=== PATIENT | female | born 1975 | race Caucasian/White ===

== ENCOUNTER 2021-12-13 02:21 | Emergency (ER) | payer SELFPAY ==
[~2021-12-13] VITALS: Ht 162.6 cm; Wt 95.5 kg
[2021-12-13] MEDS ORDERED: LEVO100T54 PO (02:31)
[2021-12-13] MEDS ORDERED: ZOLO100T PO (02:32)
[2021-12-13 04:14] VITALS: BP 127/54
== END 2021-12-13 04:29 | disposition left against medical advice (07) ==
LOC: M ED 02:21
DX: Z53.29 Procedure and treatment not carried out because of patient's decision for other reasons (principal)

== ENCOUNTER 2022-10-23 12:32 | Emergency (ER) | payer BC, OTHER, SELFPAY ==
[~2022-10-23] VITALS: Ht 162.6 cm; Wt 114.3 kg
[~2022-10-23 12:32] MED LIST: LEVO100T54 PO; ZOLO100T PO
[2022-10-23] MEDS ORDERED: FERR325T19 (12:49)
[2022-10-23] MEDS ORDERED: VITMTA PO (12:49)
[2022-10-23] MEDS ORDERED: OMEP40CA5 (12:49)
[2022-10-23] MEDS ORDERED: TRAZ-189 (12:49)
[2022-10-23] MEDS ORDERED: ONDA4TAB6 (12:49)
[2022-10-23] MEDS ORDERED: B-12100010 PO (12:49)
[2022-10-23 14:07] LABS: BASO % 0.3 % (0.0-1.0); EOS # 0.1 10^3/uL (0.0-0.5); EOS % 1.4 % (0.0-3.0); HEMATOCRIT 36.5 % (36.0-47.0); HEMOGLOBIN 12.2 g/dl (12.0-15.5); LYMPH # 1.9 10^3/uL (1.5-5.0); LYMPH % 26.3 % (24.0-44.0); MEAN CORPUSCULAR HEMOGLOBIN 30.4 pg (27.0-33.0); MEAN CORPUSCULAR HGB CONC 33.4 g/dl (32.0-36.5); MONO # 0.5 10^3/uL (0.0-0.8); NEUTROPHILS # 4.6 10^3/uL (1.5-8.5); NEUTROPHILS % 64.7 % (36.0-66.0); PLATELET COUNT, AUTOMATED 370 10^3/uL (150-450); RED BLOOD COUNT 4.01 10^6/uL (4.00-5.40); WHITE BLOOD COUNT 7.1 10^3/uL (4.0-10.0)
[2022-10-23] MEDS ORDERED: ONDANSETRON 4MG 2ML VIAL IV ONE (14:30)
[2022-10-23] MEDS ORDERED: MORPHINE 2 MG/ML 1ML VIAL IV ONE (14:30)
[2022-10-23 14:35] LABS: ALBUMIN 3.3 G/DL (3.2-5.2); BILIRUBIN,DIRECT 0.1 MG/DL (<0.4); BILIRUBIN,TOTAL 0.3 MG/DL (0.3-1.2); TOTAL PROTEIN 6.9 G/DL (5.7-8.2)
[2022-10-23] MEDS ORDERED: NS 1,000 ML IV ONE (14:40)
[2022-10-23] MEDS: GASTROGRAFIN SOLUTION 30ML PO SCH ×2 (15:13→15:42)
[2022-10-23] MEDS ORDERED: ISOVUE-370 76% 100ML VIAL As Ordered ONE (16:23)
[2022-10-23 17:36] VITALS: BP 134/72
== END 2022-10-23 17:39 | disposition home or self-care (01) ==
LOC: M ED 12:32
DX: G89.18 Other acute postprocedural pain (principal); M32.9 Systemic lupus erythematosus, unspecified; E03.9 Hypothyroidism, unspecified; Z98.84 Bariatric surgery status; Z88.6 Allergy status to analgesic agent; Z79.899 Other long term (current) drug therapy
CPT/HCPCS: 74021; 74177; 76705; 80047; 80076; 83690; 84702; 85025; 96374; 96375; 99284; J2405; Q9963; Q9967

== ENCOUNTER 2022-11-04 06:51 | Emergency (ER) | payer OTHER ==
[~2022-11-04] VITALS: Ht 162.6 cm; Wt 111.1 kg
[~2022-11-04 06:51] MED LIST changes: +B-12100010 PO; +FERR325T19; +OMEP40CA5; +ONDA4TAB6; +TRAZ-189; +VITMTA PO
[2022-11-04 07:43] LABS: BASO % 0.2 % (0.0-1.0); EOS % 0.3 % (0.0-3.0); HEMATOCRIT 37.4 % (36.0-47.0); HEMOGLOBIN 12.6 g/dl (12.0-15.5); LYMPH # 1.1 10^3/uL (1.5-5.0); LYMPH % 11.2 % (24.0-44.0); MEAN CORPUSCULAR HGB CONC 33.7 g/dl (32.0-36.5); MEAN CORPUSCULAR VOLUME 92.1 fl (80.0-96.0); MONO # 0.5 10^3/uL (0.0-0.8); NEUTROPHILS # 8.5 10^3/uL (1.5-8.5); PLATELET COUNT, AUTOMATED 296 10^3/uL (150-450); RED BLOOD COUNT 4.06 10^6/uL (4.00-5.40); WHITE BLOOD COUNT 10.2 10^3/uL (4.0-10.0)
[2022-11-04 08:07] LABS: LIPASE 25 U/L (12-53)
[2022-11-04 08:21] LABS: ALBUMIN 3.5 G/DL (3.2-5.2); ALKALINE PHOSPHATASE 82 U/L (46-116); ALT/SGPT 54 U/L (7.0-40); AST/SGOT 34 U/L (<34); BILIRUBIN,DIRECT 0.2 MG/DL (<0.4); BILIRUBIN,TOTAL 0.4 MG/DL (0.3-1.2); BLOOD UREA NITROGEN 9 MG/DL (9-23); CALCIUM LEVEL 8.5 MG/DL (8.5-10.1); CARBON DIOXIDE LEVEL 23 MMOL/L (20-31); CHLORIDE LEVEL 104 MMOL/L (98-107); CREATININE FOR GFR 0.63 MG/DL (0.55-1.30); GLOMERULAR FILTRATION RATE > 60.0 (>58); GLUCOSE, FASTING 154 MG/DL (60-100); SODIUM LEVEL 140 MMOL/L (136-145); TOTAL PROTEIN 6.9 G/DL (5.7-8.2)
[2022-11-04] MEDS ORDERED: ONDANSETRON 4MG 2ML VIAL IV ONE (09:45)
[2022-11-04] MEDS ORDERED: MORPHINE 4 MG/ML 1ML VIAL IV ONE (09:45)
[2022-11-04] MEDS ORDERED: ISOVUE-370 76% 100ML VIAL As Ordered ONE (09:50)
[2022-11-04] MEDS ORDERED: KETOROLAC 30 MG/ML 1ML VIAL IV ONE (13:15)
[2022-11-04 14:24] VITALS: BP 126/77
== END 2022-11-04 14:29 | disposition home or self-care (01) ==
LOC: M ED 06:51
DX: R10.2 Pelvic and perineal pain (principal); E03.9 Hypothyroidism, unspecified; Z98.84 Bariatric surgery status; Z88.6 Allergy status to analgesic agent; Z79.899 Other long term (current) drug therapy
CPT/HCPCS: 74177; 76830; 76856; 80048; 80076; 81001; 83690; 84702; 85025; 96374; 96375; 99284; J1885; J2405; Q9967

== ENCOUNTER → 2024-01-04 | Outpatient (CLI) | payer OTHER ==
[~2024-01-04] MED LIST changes: +APPL300T4 PO; +BIOT1TAB PO; +ERGO500029 PO; +MULTTAB61 PO; +ONDA-282; -ONDA4TAB6; +OYST500C PO; +TRAZ-257 PO
[2024-01-04 15:59] LABS: HEMATOCRIT 34.6 % (36.0-47.0); HEMOGLOBIN 11.5 g/dl (12.0-15.5); MEAN CORPUSCULAR HEMOGLOBIN 32.7 pg (27.0-33.0); MEAN CORPUSCULAR HGB CONC 33.2 g/dl (32.0-36.5); MEAN CORPUSCULAR VOLUME 98.3 fl (80.0-96.0); PLATELET COUNT, AUTOMATED 272 10^3/uL (150-450); RED BLOOD COUNT 3.52 10^6/uL (4.00-5.40); WHITE BLOOD COUNT 5.1 10^3/uL (4.0-10.0)
[2024-01-04 16:32] LABS: BLOOD UREA NITROGEN 14 MG/DL (9-23); CALCIUM LEVEL 8.7 MG/DL (8.5-10.1); CARBON DIOXIDE LEVEL 27 MMOL/L (20-31); CHLORIDE LEVEL 107 MMOL/L (98-107); GLOMERULAR FILTRATION RATE > 60.0 (>58); GLUCOSE, FASTING 82 MG/DL (60-100); POTASSIUM SERUM 3.7 MMOL/L (3.5-5.1); SODIUM LEVEL 139 MMOL/L (136-145)
== END ==
LOC: M RAD 13:49
PROVIDERS: ATTEND Nurse Practitioner Adult Health
DX: Z01.810 Encounter for preprocedural cardiovascular examination (principal); Z01.812 Encounter for preprocedural laboratory examination; R00.1 Bradycardia, unspecified

== ENCOUNTER 2024-01-09 07:23 | Observation (INO) | payer OTHER ==
[~2024-01-09] VITALS: Ht 162.6 cm; Wt 58.8 kg
[~2024-01-09 07:23] MED LIST changes: -APPL300T4 PO; -BIOT1TAB PO; -ERGO500029 PO; -MULTTAB61 PO; -OYST500C PO
[2024-01-09] MEDS ORDERED: LR 1,000 ML IV SCH (07:45)
[2024-01-09] MEDS ORDERED: ONDANSETRON 4MG 2ML VIAL As Ordered ONE (08:22)
[2024-01-09] MEDS ORDERED: fentaNYL 250 MCG/5 ML INJECTION As Ordered ONE (08:22)
[2024-01-09] MEDS ORDERED: LIDOCAINE 2% 100MG/5ML SDV (FOR ANES.) As Ordered ONE (08:22)
[2024-01-09] MEDS ORDERED: MIDAZOLAM INJ 2MG/2ML VIAL As Ordered ONE (08:22)
[2024-01-09] MEDS ORDERED: SUGAMMADEX SODIUM 500 MG/5 ML VIAL (BRIDION) As Ordered ONE (08:22)
[2024-01-09] MEDS ORDERED: propofoL 200 MG/20 ML VIAL As Ordered ONE (08:22)
[2024-01-09] MEDS ORDERED: LACRILUBE (AKWA TEARS) OPHTH OINT 3.5GM As Ordered ONE (08:22)
[2024-01-09] MEDS ORDERED: ROCURONIUM BROMIDE 50MG/5ML VIAL As Ordered ONE (08:22)
[2024-01-09] MEDS ORDERED: dexmedeTOMIDine (4MCG/ML)200MCG/50ML BTL (PRECEDEX) As Ordered ONE (08:23)
[2024-01-09] MEDS ORDERED: OYST500C PO ×2 (08:37)
[2024-01-09] MEDS ORDERED: ERGO500029 PO (08:37)
[2024-01-09] MEDS ORDERED: MULTTAB61 PO (08:37)
[2024-01-09] MEDS ORDERED: APPL300T4 PO (08:40)
[2024-01-09] MEDS ORDERED: BIOT1TAB PO (08:40)
[2024-01-09] MEDS ORDERED: HOME MED LIST COMPLETE! XX SCH (08:45)
[2024-01-09] MEDS: ceFAZolin SOD 2 GM in IV 1 EA IV ONE (10:30)
[2024-01-09] MEDS: HEPARIN SOD (PORCINE) 5000UNITS/ML 1ML VIAL/SYRINGE SQ ONE (10:30)
[2024-01-09] MEDS ORDERED: ePHEDrine SULFATE 25 MG/5 ML(5MG/ML) SYRINGE As Ordered ONE (10:40)
[2024-01-09] MEDS ORDERED: ACETAMINOPHEN 1000MG 100ML IV BAG As Ordered ONE (10:47)
[2024-01-09] MEDS ORDERED: HYDROmorphone HCL 2MG/ML 1ML VIAL As Ordered ONE (11:24)
[2024-01-09] MEDS: GENTAMICIN SULF 80MG/2ML VIAL As Ordered ONE (11:56)
[2024-01-09] MEDS ORDERED: METOCLOPRAMIDE INJ 10MG/2ML VIAL As Ordered ONE (12:37)
[2024-01-09] MEDS ORDERED: oxyCODONE 5MG TAB PO PRN (12:55)
[2024-01-09] MEDS: LR 1,000 ML IV SCH ×2 (12:55→15:29)
[2024-01-09] MEDS ORDERED: ONDANSETRON 4MG 2ML VIAL IV PRN ×2 (12:55→13:50)
[2024-01-09] MEDS ORDERED: fentaNYL 100 MCG/2 ML INJECTION IV PRN (12:55)
[2024-01-09] MEDS ORDERED: HYDROMORPHONE HCL 0.5 MG/ 0.5 ML SYRINGE IV PRN (12:55)
[2024-01-09] MEDS ORDERED: PERCOCET 5MG/325MG TAB PO PRN (13:50)
[2024-01-09 15:30] VITALS: BP 118/67; TEMP 97.9; O2SAT 98
[2024-01-09 16:00] VITALS: BP_SYST 111; BP_SYST 118; BP_DIAS 60; BP_DIAS 69; TEMP 97.9; TEMP 98.6; O2SAT 97
[2024-01-09] MEDS: ACETAMINOPHEN TAB 650MG DOSE (2X325MG) PO PRN (16:43)
[2024-01-09 17:31] VITALS: BP 114/69; TEMP 98.8; O2SAT 98
[2024-01-09 18:30] VITALS: BP 115/72; TEMP 98.2; O2SAT 96
[2024-01-09] MEDS: traMADol 50 MG TAB PO PRN (19:29)
[2024-01-09] MEDS: ceFAZolin SOD 2 GM in IV 1 EA IV SCH (20:03)
[2024-01-09 20:50] VITALS: BP 114/73; TEMP 98.1; O2SAT 97
[2024-01-09 23:24] VITALS: BP 125/69; TEMP 97.9; O2SAT 97
[2024-01-10 05:03] VITALS: BP 121/69; TEMP 98.2; O2SAT 96
[2024-01-10] MEDS: LEVOTHYROXINE 100MCG TABLET (0.1MG) PO SCH (06:22)
[2024-01-10 08:00] VITALS: BP 148/91; TEMP 97.6; O2SAT 97
[2024-01-10] MEDS ORDERED: TRAM50TA2 PO (09:43)
== END 2024-01-10 12:05 | disposition home or self-care (01) ==
LOC: M SDC 07:23 → M ED INP 13:48 → M MS5PR 15:10
PROVIDERS: ADMIT Plastic Surgery Surgery of the Hand; ATTEND Plastic Surgery Surgery of the Hand
DX: M79.3 Panniculitis, unspecified (principal); M62.08 Separation of muscle (nontraumatic), other site; R21 Rash and other nonspecific skin eruption; Z98.84 Bariatric surgery status; E03.9 Hypothyroidism, unspecified; G47.30 Sleep apnea, unspecified; Z88.8 Allergy status to other drugs, medicaments and biological substances; Z79.890 Hormone replacement therapy; Z79.899 Other long term (current) drug therapy
CPT/HCPCS: 15830; 81025; 88302; 96374; 96376; C9290; J0131; J0665; J0690; J1100; J1170; J1580; J2250; J2405; J2765; J3010